=== PATIENT | female | born 1945 | race African-American/Black ===

== ENCOUNTER → 2023-09-22 | Outpatient (CLI) | payer MEDICARE, MEDICAID ==
[~2023-09-22] MED LIST: REGADENOSON 0.4 MG/5 ML IV ONE
== END | disposition home or self-care (01) ==
LOC: RAD 10:00
PROVIDERS: ATTEND Internal Medicine
DX: R94.31 Abnormal electrocardiogram [ECG] [EKG] (principal)
CPT/HCPCS: 78452; 93017; J2785; A9500